=== PATIENT | female | born 1970 | race Caucasian/White ===

== ENCOUNTER 2017-05-09 15:21 | Emergency (ER) | payer SELFPAY ==
[2017-05-09] MEDS ORDERED: guaiFENesin/CODIEN 100MG-10MG* 5 ML UDC PO ONE (17:01)
[2017-05-09 17:22] VITALS: BP 124/72
--- NOTE | 2017-05-09 19:30 | ED ---
Jose A Haas Tecjoon, scribed for King Valentine MD on 05/09/17 at 1555 . Complex/Multi-Sys Presentation - HPI Summary HPI Summary: This patient is a 46 year old female presenting to [facility] with a chief complaint of SOB and cough. Pt states that she was diagnosed with pneumonia 11 weeks ago and took Z-eladio, steroids, Augmentin, Zyrtec, and Mucinex until present, which brought relief, but suddenly developed symptoms in the last 4 days. The pain is rated 7/10 in severity. Symptoms aggravated by nothing. Symptoms alleviated by being outside in the cold. Patient additionally reports rhinorrhea, pressure in head, wheezing, sore throat from coughing, fevers. - History Of Current Complaint Chief Complaint: EDGeneral Time Seen by Provider: 05/09/17 15:32 Hx Obtained From: Patient Onset/Duration: Sudden Onset, Lasting Days - 4 days, Still Present Timing: Constant Severity Currently: Moderate - 7/10 Aggravating Factor(s): nothing Alleviating Factor(s): "being outside in cold", medication Associated Signs And Symptoms: Positive: Other - rhinorrhea, pressure in head, wheezing, sore throat from coughing, fevers Related History: Recent Illness, Similar Episode/Diagnosed As: - Pneumonia - Allergies/Home Medications Allergies/Adverse Reactions: Allergies Allergy/AdvReac Type Severity Reaction Status Date / Time IV dye Allergy Anaphylatic Uncoded 05/09/17 15:29 Shock PMH/Surg Hx/FS Hx/Imm Hx Previously Healthy: Yes Respiratory History: Reports: Hx Pneumonia Opthamlomology History: Denies: Hx Legally Blind EENT History: Denies: Hx Deafness Infectious Disease History: No Infectious Disease History: Denies: Traveled Outside the [place] in Last 30 Days - Family History Known Family History: Negative: Cardiac Disease, Hypertension, Diabetes - Social History Alcohol Use: None Hx Substance Use: No Substance Use Type: Reports: None Hx Tobacco Use: No Smoking Status (MU): Never Smoked Tobacco Review of Systems Positive: Fever ENT: Other - head pressure Positive: Sore Throat, Nasal Discharge Positive: Shortness Of Breath, Cough, Other - wheezing All Other Systems Reviewed And Are Negative: Yes Physical Exam - Summary Physical Exam Summary: Appearance: The patient is well-nourished in no acute distress and in no acute pain. Skin: The skin is warm and dry and skin color reflects adequate perfusion. HEENT: The head is normocephalic and atraumatic. The pupils are equal and reactive. The conjunctivae are clear and without drainage. Nares are patent and without drainage. Mouth reveals moist mucous membranes and the throat is without erythema and exudate. The external ears are intact. The ear canals are patent and without drainage. The tympanic membranes are intact. Neck: the neck is supple with full range of motion and non-tender. There are no carotid bruits. There is no neck vein distension. Respiratory: Chest is non-tender. Lungs are clear to auscultation and breath sounds are symmetrical and equal. Patient has a slight dry cough. Cardiovascular: Heart is regular rate and rhythm. There is no murmur or rub auscultated. There is no peripheral edema and pulses are symmetrical and equal. Abdomen: The abdomen is soft and non-tender. There are normal bowel sounds heard in all four quadrants and there is no organomegaly palpated. Musculoskeletal: There is no back tenderness noted. Extremities are non-tender with full range of motion. There is good capillary refill. There is no peripheral edema or calf tenderness elicited. Neurological: Patient is alert and oriented to person, place and time. The patient has symmetrical motor strength in all four extremities. Cranial nerves are grossly intact. Deep tendon reflexes are symmetrical and equal in all four extremities. Psychiatric: The patient has an appropriate affect and does not exhibit any anxiety or depression. Triage Information Reviewed: Yes Vital Signs On Initial Exam: Initial Vitals Temp Pulse Resp BP Pulse Ox 97 F 96 22 120/79 98 05/09/17 15:25 05/09/17 15:25 05/09/17 15:25 05/09/17 15:25 05/09/17 15:25 Vital Signs Reviewed: Yes - Mckenna Coma Scale Coma Scale Total: 15 Diagnostics - Vital Signs Vital Signs Temp Pulse Resp BP Pulse Ox 05/09/17 15:25 97 F 96 22 120/79 98 - Laboratory Lab Results: Lab Results 05/09/17 Range/Units 16:18 Influenza A (Rapid) Negative (Negative) Influenza B (Rapid) Negative (Negative) Lab Statement: Any lab studies that have been ordered have been reviewed, and results considered in the medical decision making process. Complex Multi-Symp Course/Dx Course Of Treatment: Ms. Naranjo has had cngestion an aggravating dry cough mostly at night for the last 3-4 days. She has had no fevers. She has been treated a couple of times with antibiotics in the last couple of months. She has no known underlying lung pathology. Her influenza swab was negative and I treated her symptomatically with a cough suppressant. - Diagnoses Provider Diagnoses: Bronchitis Discharge - Discharge Plan Condition: Stable Disposition: HOME Prescriptions: Guaifenesin-Codeine [Guaiatussin AC 100-10 mg/5Ml] 1 syp PO Q4HR PRN #100 syp MDD 6 PRN Reason: Cough Patient Education Materials: Acute Bronchitis (ED) Referrals: No Primary Care Phys,NOPCP [Primary Care Provider] - 3 Days Additional Instructions: Return to ED if there are persisting or worsening symptoms. Patient is advised to get a primary care physician and follow up in 3-4 days. The documentation as recorded by the Jose A mojica Tecjoon accurately reflects the service I personally performed and the decisions made by me, King Valentine MD.
== END 2017-05-09 17:21 | disposition home or self-care (01) ==
LOC: ED 15:21
DX: J40 Bronchitis, not specified as acute or chronic (principal)
CPT/HCPCS: 87502; 99282

== ENCOUNTER 2018-03-08 17:32 | Emergency (ER) | payer SELFPAY ==
[2018-03-08 17:47] VITALS: BP 125/82
--- NOTE | 2018-03-08 19:20 | UC ---
Respiratory Complaint HPI - HPI Summary HPI Summary: 5 DAYS OF SINUS PRESSURE, POSTNASAL DRAINAGE, HEADACHE AND ACHINESS. VOICE IS HOARSE DUE TO PHLEGM IN THE BACK OF HER THROAT. NO FEVER, SORE THROAT, EAR PAIN. NO NAUSEA/VOMITING. NO PURULENT NASAL DISCHARGE. HAS BEEN TAKING OTC IBUPROFEN AND COUGH MEDICINE WITHOUT MUCH RELIEF. IS HERE VISITING FROM [place]. - History of Current Complaint Chief Complaint: UCGeneralIllness Stated Complaint: SINUS COMPLAINT Time Seen by Provider: 03/08/18 19:03 Hx Obtained From: Patient Hx Last Menstrual Period: hysterectomy, partial Onset/Duration: Gradual Onset, Lasting Days, Still Present Timing: Constant Severity Initially: Moderate Severity Currently: Moderate Pain Intensity: 6 Pain Scale Used: 0-10 Numeric Character: Cough: Nonproductive Aggravating Factors: Nothing Alleviating Factors: Nothing Associated Signs And Symptoms: Positive: URI, Hoarseness, Sinus Discomfort. Negative: Dyspnea, Fever, Wheezing, Dizziness - Allergies/Home Medications Allergies/Adverse Reactions: Allergies Allergy/AdvReac Type Severity Reaction Status Date / Time IV dye Allergy Severe Anaphylatic Uncoded 03/08/18 17:47 Shock Home Medications: Home Medications Cholecalciferol (Vitamin D3) [Vitamin D3] 2,000 unit PO DAILY 03/08/18 [History] PMH/Surg Hx/FS Hx/Imm Hx Previously Healthy: Yes - Surgical History Surgical History: Yes Surgery Procedure, Year, and Place: partial HYster. c-sections x 3. cholycystectomy with bile duct reconstruction. cervical discectomy - Family History Known Family History: Negative: Cardiac Disease, Hypertension, Diabetes - Social History Alcohol Use: None Substance Use Type: None Smoking Status (MU): Never Smoked Tobacco Review of Systems Constitutional: Fatigue ENT: Sinus Congestion, Sinus Pain/Tenderness Respiratory: Cough - MINIMAL Cardiovascular: Negative Gastrointestinal: Negative Neurological: Headache All Other Systems Reviewed And Are Negative: Yes Physical Exam Triage Information Reviewed: Yes Appearance: Well-Appearing, No Pain Distress, Well-Nourished Vital Signs: Initial Vital Signs Temp 97.5 F 03/08/18 17:41 Pulse 69 03/08/18 17:41 Resp 15 03/08/18 17:41 BP 125/82 03/08/18 17:41 Pulse Ox 100 03/08/18 17:41 Vital Signs Reviewed: Yes Eyes: Positive: Conjunctiva Clear ENT: Positive: Hearing grossly normal, Pharynx normal, TMs normal, Hoarse voice Neck: Positive: Supple, Nontender, No Lymphadenopathy Respiratory Exam: Normal Cardiovascular Exam: Normal Abdomen Description: Positive: Soft Musculoskeletal: Positive: No Edema Neurological: Positive: Alert Psychological: Positive: Age Appropriate Behavior Skin: Negative: rashes UC Diagnostic Evaluation - Laboratory O2 Sat by Pulse Oximetry: 100 Respiratory Course/Dx - Differential Dx/Diagnosis Provider Diagnoses: ACUTE SINUSITIS - LIKELY VIRAL Discharge - Sign-Out/Discharge Documenting (check all that apply): Patient Departure All imaging exams completed and their final reports reviewed: No Studies - Discharge Plan Condition: Stable Disposition: HOME Prescriptions: predniSONE TAB* [Deltasone 20 MG TAB*] 40 mg PO DAILY #10 tab Patient Education Materials: Sinusitis (ED) Referrals: No Primary Care Phys,NOPCP [Primary Care Provider] - Additional Instructions: YOUR SYMPTOMS ARE LIKELY VIRALLY MEDIATED AND SHOULD RESOLVE ON THEIR OWN WITH TIME. NO INDICATION FOR ANTIBIOTICS AT PRESENT. REST, HYDRATE, OTC MEDS NEEDED. WILL TREAT WITH PREDNISONE TO HELP WITH INFLAMMATION. TAKE OTC DECONGESTANTS AND IBUPROFEN TO HELP WITH SINUS DISCOMFORT. SEEK FOLLOW-UP WITH YOUR PCP IN [place] IF YOU ARE NOT IMPROVING OVER THE NEXT 1-2 WEEKS. - Billing Disposition and Condition Condition: STABLE Disposition: Home
== END 2018-03-08 19:15 | disposition home or self-care (01) ==
LOC: UCEAST 17:32
DX: J01.90 Acute sinusitis, unspecified (principal); Z91.041 Radiographic dye allergy status
CPT/HCPCS: 99212; G0463

== ENCOUNTER → 2018-07-01 09:34 | Emergency (ER) | payer OTHER ==
[2018-07-01 09:43] VITALS: BP 116/75
== END | disposition left against medical advice (07) ==
LOC: ED 09:34
DX: R51 Headache (principal); R11.10 Vomiting, unspecified; Z53.21 Procedure and treatment not carried out due to patient leaving prior to being seen by health care provider